=== PATIENT | female | born 1940 | race Caucasian/White ===

== ENCOUNTER 2016-11-14 18:50 | Emergency (ER) | payer OTHER | END 2016-11-14 21:00 | disposition home or self-care (01) | LOC: ER 18:50 | DX: R25.2 Cramp and spasm (principal); E87.1 Hypo-osmolality and hyponatremia; R53.1 Weakness; I10 Essential (primary) hypertension; F41.9 Anxiety disorder, unspecified; E78.5 Hyperlipidemia, unspecified; Z79.899 Other long term (current) drug therapy | CPT/HCPCS: 36415 ==